=== PATIENT | male | born 1960 | race Caucasian/White ===

== ENCOUNTER 2018-01-10 08:36 | Emergency (ER) | END 2018-01-10 11:39 | disposition home or self-care (01) ==

== ENCOUNTER 2018-07-03 07:17 | Day surgery (SDC) | payer OTHER ==
[~2018-07-03] VITALS: Ht 170.2 cm; Wt 74.4 kg
[2018-07-03 08:14] VITALS: Ht 170.2 cm; Wt 74.4 kg
[2018-07-03] MEDS ORDERED: allopurinol PO (08:22)
[2018-07-03] MEDS ORDERED: ibuprofen PO (08:22)
[2018-07-03] MEDS ORDERED: gabapentin PO (08:22)
[2018-07-03 08:30] VITALS: BP 121/79; PULSE 68; RESP 18
[2018-07-03 09:26] VITALS: BP 97/65; PULSE 76; RESP 20
[2018-07-03 09:38] VITALS: BP 98/64; PULSE 77; RESP 20
[2018-07-03] MEDS ORDERED: MIDAZOLAM 1 MG/ML 2 ML INJ ONE ×3 (09:42→17:01)
[2018-07-03] MEDS ORDERED: FENTAnyl 50 MCG/ML VIAL ONE (09:42)
== END 2018-07-03 12:16 | disposition home or self-care (01) ==
LOC: GIL 07:17
PROVIDERS: ATTEND Internal Medicine Gastroenterology
DX: Z12.11 Encounter for screening for malignant neoplasm of colon (principal); K64.8 Other hemorrhoids; K57.30 Diverticulosis of large intestine without perforation or abscess without bleeding
CPT/HCPCS: 45378; J2250; J3010

== ENCOUNTER 2018-11-07 07:41 | Day surgery (SDC) | payer OTHER ==
[2018-11-07] VITALS (9 sets, daily range): BP systolic 105–154; BP diastolic 65–98; PULSE 62–77; RESP 12–16; Ht 167.6 cm; Wt 73.4 kg
[~2018-11-07] VITALS: Ht 167.6 cm; Wt 73.4 kg
[~2018-11-07 07:41] MED LIST: allopurinol PO; gabapentin PO; ibuprofen PO
[2018-11-07] MEDS ORDERED: LACTATED RINGER'S 1,000 ML IV SCH (09:00)
[2018-11-07] MEDS ORDERED: ROPIVACAINE 0.5 % 30 ML VIAL ONE (09:23)
[2018-11-07] MEDS ORDERED: NEOMYC/POLYMYX/BACIT 30 GM OINT ONE (09:23)
[2018-11-07] MEDS ORDERED: FENTAnyl 50 MCG/ML VIAL ONE (09:48)
[2018-11-07] MEDS ORDERED: DEXAMETHASONE 4 MG/ML 5 ML INJ ONE (09:48)
[2018-11-07] MEDS ORDERED: ONDANSETRON 4 MG INJ ONE (09:48)
[2018-11-07] MEDS ORDERED: FAMOTIDINE 20 MG INJ ONE (09:50)
[2018-11-07] MEDS ORDERED: LIDOCAINE 2% (SDV) 5 ML INJ ONE (09:50)
[2018-11-07] MEDS ORDERED: METOCLOPRAMIDE 10 MG INJ ONE (09:50)
[2018-11-07] MEDS ORDERED: PROPOFOL 20 ML ONE (09:50)
[2018-11-07] MEDS ORDERED: CEFAZOLIN 1 GM INJ ONE (09:50)
[2018-11-07] MEDS ORDERED: KETOROLAC 30 MG INJ ONE (09:51)
[2018-11-07] MEDS ORDERED: morphine 2 MG INJ IV PRN (10:00)
[2018-11-07] MEDS ORDERED: KETOROLAC 30 MG INJ IV SCH (10:00)
[2018-11-07] MEDS ORDERED: MEPERIDINE 25 MG INJ IV PRN (10:30)
[2018-11-07] MEDS ORDERED: ONDANSETRON 4 MG INJ IV PRN (10:30)
[2018-11-07] MEDS ORDERED: hydrALAzine 20 MG INJ IV PRN (10:30)
[2018-11-07] MEDS ORDERED: OXYCODONE/ACETAMINOPHEN (5/325) TAB PO PRN ×2 (10:30)
[2018-11-07] MEDS ORDERED: LABETALOL HCL 20MG INJ IV PRN (10:30)
[2018-11-07] MEDS ORDERED: HYDROmorphONE 1 MG/5 ML IV SYRINGE IV PRN ×3 (10:30)
== END 2018-11-07 12:24 | disposition home or self-care (01) ==
LOC: SDS 07:41
PROVIDERS: ATTEND Orthopaedic Surgery
DX: S83.241A Other tear of medial meniscus, current injury, right knee, initial encounter (principal); S83.282A Other tear of lateral meniscus, current injury, left knee, initial encounter; M25.562 Pain in left knee; M94.262 Chondromalacia, left knee; E83.52 Hypercalcemia
CPT/HCPCS: 82306; J0690; J1100; J1885; J2405; J2765; J2795; J3010